=== PATIENT | female | born 1995 | race Caucasian/White ===

== ENCOUNTER 2024-09-21 13:55 | Emergency (ER) | payer OTHER, SELFPAY ==
[2024-09-21 14:02] VITALS: BP 132/73; PULSE 81; RESP 17; TEMP 36.6; O2SAT 98; BMI 29.2
--- NOTE | 2024-09-21 14:23 | US_ITS ---
WS: [id number] EARLY OBSTETRICAL ULTRASOUND (<14 WEEKS). HISTORY: vaginal bleeding, early COMPARISON: None available. Transvaginal imaging is performed. Thickened hyperechoic but homogeneous endometrium. Endometrium measures 11 mm. There is no intrauterine gestation. No pole or gestational sac. No implantation bleeding. There is no free fluid in the cul-de-sac. RIGHT ovary measures 4.1 x 1.7 x 3.6 cm. LEFT ovary measures 2.5 x 1.7 x 2.5 cm. No additional adnexal masses. US/US OB <=14 wk fetus w transvag IMPRESSION: 1. No intrauterine gestation identified. This may be due to a very early intra uterine gestation versus spontaneous versus ectopic . Correla te with beta hCG levels. 2. No ascites.
--- NOTE | 2024-09-21 14:56 | ED_ITS ---
HPI - Abdominal Pain 2 General: Chief Complaint: Abdominal Pain Stated Complaint: spotting / cramping / (5 weeks) Time Seen by Provider: 09/21/24 14:48 History of Present Illness: 29-year-old female presents emergency ro om with concern for miscarriage. She thinks she is approximately 5 weeks . She started having some low back pain and abdominal cramping today. She also had some vaginal bleeding. She has never had a miscarriage before. No fevers. No dysuria. Related Data Home Medications ?Medication ?Instructions ?Recorded ?Confirmed ibuprofen 200 mg tablet 800 mg PO Q6H PRN Fever Or P ain 09/21/24 09/21/24 vits no.118-iron asparto 1 cap PO DAILY 09/2109/21/24 30 mg-folate 1 mg-dha 300 mg capsule Previous Rx's ?Medication ?Instructions ?Recorded cephalexin 500 mg tablet 500 mg PO TID 7 days #21 tab s 09/21/24 diclofenac sodium 50 mg 50 mg PO BID PRN pain #14 ta bs 09/21/24 tablet,delayed release Allergies Allergy/AdvReac Type Severity Reaction Status Date / Time acetaminophen (From Allergy ALGY-Hives Verified 09/21/24 14:05 Darvocet-N) propoxyphene (From Allergy ALGY-Hives Verified 09/21/24 14:05 Darvocet-N) Review of Systems 2 Narrative: Constitutional symptoms: Negative except as documented in HPI. Skin symptoms: Negative except as documented in HPI. Eye symptoms: Negative except as documented in HPI. ENMT symptoms: Negative except as documented in HPI. Respiratory symptoms: Negative except as documented in HPI. Cardiovascular symptoms: Negative except as documented in HPI. Gastrointestinal symptoms: Negative except as documented in HPI. Genitourinary symptoms: Negative except as documented in HPI. Musculoskeletal symptoms: Negative except as documented in HPI. Neurologic symptoms: Negative except as documented in HPI. Psychiatric symptoms: Negative except as documented in HPI. Endocrine symptoms: Negative except as documented in HPI. Physical Exam 2 Narrative: EXAM NARRATIVE: General: Alert, no acute distress. Skin: Warm, dry. Head: Normocephalic, atraumatic. Neck: Supple, trachea midline. Eye: Extraocular movements are intact. Ears, nose, mouth and throat: mucosa moist. Cardiovascular: Regular, Normal peripheral perfusion. Respiratory: Lungs are clear to auscultation, respirations are non-labored, breath sounds are equal, Symmetrical chest wall expansion. Gastrointestinal: Soft, Nontender, Non distended Musculoskeletal: Normal ROM, no deformity. Neurological: Alert and oriented, No focal neurological deficit observed. Psychiatric: Cooperative, appropriate mood & affect. Course 2 Vital Signs: Vital signs: Vital Signs Temperature 97.9 F 09/21/24 14:02 Pulse Rate 81 09/21/24 14:02 Respiratory Rate 17 09/21/24 14:02 Blood Pressure 132/73 09/21/24 14:02 Pulse Oximetry 98 09/21/24 14:02 Oxygen Delivery Me thod Room Air 09/21/24 14:02 MDM - Abdominal Pain Medical Decision Making Medical decision making: Differential diagnosis including but not limited to and based on the above HPI, review of systems and physical exam: for patient in early with vaginal bleeding and abdominal pain: Spontaneous , threatened . Urinary tract infection. ectopic . Orders placed to evaluate differential diagnosis based on the above differential, HPI and physical exam Lab Review: Laboratory results were reviewed and interpreted by myself the emergency room physician. No leukocytosis. No anemia. No renal failure. hCG is near negative at 7. She does have 11-20 whites in her urine some going to place her on some antibiotics for a few days just in case she has UTI given that she has been having some low back pain. Patient is Rh+ so does not require RhoGAM. Ultrasound of the pelvis OB protocol: No intrauterine gestational findings. Either very early or spontaneous versus ectopic. This was reviewed and interpreted by myself the emergency room physician. I also reviewed the radiology report. I reviewed the patient's medical record. Reexamination: Patient has remained stable. No increased work of breathing. No altered mental status. She has no localizing abdominal pain to suggest ectopic . She has an appointment with her OB doctor in a few days. She will repeat lab at that time. Assessment and plan: Likely miscarriage Possible UTI - Discharged home - Discussed plan with patient. Answered any questions. - Evaluation and treatment of this problem were appropriate in the emergency setting. Lab Data 09/21/24 14:57 09/21/24 14:57 Labs/Radiology: Radiology Impressions Obstetrics Ultrasound 09/21/24 14:23 IMPRESSION: 1. No intrauterine gestation identified. This may be due to a very early intrauterine gestation versus spontaneous versus ectopic . Correlate with beta hCG levels. 2. No ascites. Laboratory Results WBC 10.14 10^3/uL (3.29-11.43) 09/21/24 14:57 RBC 4.64 10^6/uL (3.85-5.65) 09/21/24 14:57 Hgb 13.40 g/dL (11.27-16.99) 09/21/24 14:57 Hct 41.0 % (36-47) 09/21/24 14:57 MCV 88.4 fl (85-98) 09/21/24 14:57 MCH 28.9 pg (27-33) 09/21/24 14:57 MCHC 32.7 g/dL (30-55) 09/21/24 14:57 RDW 12.4 % (12.1-15.1) 09/21/24 14:57 Plt Count 278 10^3/cmm (157-399) 09/21/24 14:57 MPV 11.3 fL (7.4-10.4) H 09/21/24 14:57 Neut % (Auto) 71.7 % 09/21/24 14:57 Lymph % (Auto) 19.5 % 09/21/24 14:57 [place] % (Auto) 6.9 % 09/21/24 14:57 Eos % (Auto) 1.4 % 09/21/24 14:57 Baso % (Auto) 0.3 % 09/21/24 14:57 Neut # (Auto) 7.27 10^3/uL (1.8-7.7) 09/21/24 14:57 Lymph # (Auto) 2.0 10^3/uL (0.8-4.8) 09/21/24 14:57 [place] # (Auto) 0.7 10^3/uL (0.2-0.9) 09/21/24 14:57 Eos # (Auto) 0.1 10^3/uL (0.0-0.8) 09/21/24 14:57 Baso # (Auto) 0.0 10^3/uL (0.0-0.1) 09/21/24 14:57 Nucleated RBC % (auto) 0 % 09/21/24 14:57 Nucleated RBCs # 0.0 /100WBC 09/21/24 14:57 Sodium 141 mmol/L (136-145) 09/21/24 14:57 Potassium 3.6 mmol/L (3.5-5.1) 09/21/24 14:57 Chloride 105 mmol/L (98-107) 09/21/24 14:57 Carbon Dioxide 25 mmol/L (22-29) 09/21/24 14:57 Anion Gap 14.6 (5-19) 09/21/24 14:57 BUN 8 mg/dL (6-20) 09/21/24 14:57 Creatinine 0.6 mg/dL (0.5-0.9) 09/21/24 14:57 GFR Calculation 117.4 mL/min (90-130) 09/21/24 14:57 Glucose 92 mg/dL (65-115) 09/21/24 14:57 Calculated Osmolality 290 mOsm/kg (285-295) 09/21/24 14:57 Calcium 9.0 mg/dL (8.5-10.5) 09/21/24 14:57 Total Bilirubin 0.4 mg/dL (0.15-1.2) 09/21/24 14:57 AST 13 U/L (0-32) 09/21/24 14:57 ALT 13 U/L (0-33) 09/21/24 14:57 Alkaline Phosphatase 67 U/L (35-105) 09/21/24 14:57 Total Protein 7.4 g/dL (6.6-8.7) 09/21/24 14:57 Albumin 4.6 g/dL (3.5-5.2) 09/21/24 14:57 Globulin 2.8 g/dL (1.3-4.6) 09/21/24 14:57 Ser , Semi-Qnt 7.43 mIU/mL 09/21/24 14:57 Urine Color Red (Yellow) A 09/21/24 14:45 Urine Appearance Cloudy (CLEAR) A 09/21/24 14:45 Urine pH 7.0 (5-7) 09/21/24 14:45 Ur Specific [place] 1.006 (1.005-1.030) 09/21/24 14:45 Urine Protein 1+ (Negative) A 09/21/24 14:45 Urine Glucose (UA) Negative (Normal) 09/21/24 14:45 Urine Ketones Negative (Negative) 09/21/24 14:45 Urine Blood 3+ (Negative) A 09/21/24 14:45 Urine Nitrate Negative (Negative) 09/21/24 14:45 Urine Bilirubin Negative (Negative) 09/21/24 14:45 Urine Urobilinogen 0.2 mg/dL (Negative) 09/21/24 14:45 Ur Leukocyte Esterase Trace (Negative) A 09/21/24 14:45 Urine RBC 51-100 /hpf (0-2) H 09/21/24 14:45 Urine WBC 11-20 /hpf (0-5) H 09/21/24 14:45 Ur Squamous Epith Cells 0-5 /hpf (0-5) 09/21/24 14:45 Amorphous Sediment Not Reportable 09/21/24 14:45 Urine Bacteria None seen /hpf (NONE) 09/21/24 14:45 Hyaline Casts 0-4 /lpf H 09/21/24 14:45 Blood Type O Positive 09/21/24 14:57 Rho(D) Type Rh positive 09/21/24 14:57 All radiology interpretation(s) finalized by discharge Discharge Plan Discharge Patient Disposition: Home Clinical Impression: Miscarriage Condition: Stable Prescriptions: New cephalexin 500 mg tablet 500 mg PO TID 7 Days Qty: 21 0RF diclofenac sodium 50 mg tablet,delayed release (DR/EC) 50 mg PO BID PRN (Reason: pain) Qty: 14 0RF No Action ibuprofen [Excedrin IB] 200 mg Tablet 800 mg PO Q6H PRN (Reason: Fever Or Pain) [id number] 6-dha 30-1-300 mg Capsule 1 cap PO DAILY Discharge Orders: Discharge ED (Routine); Ordered 09/21/24 Ordered By: Radha Mcclure Referrals: Tatianna Melendrez MD [Primary Care Provider] - Patient Instructions: Opioid Safety, Pain Management Activity Restrictions/Additional Instructions: Please follow with your PCP for repeat beta-hCG in 2 to 3 days. If you develop any worsening pain or fevers please return to the emergency room or seek medical attention. 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 Thank you for choosing [facility] for your healthcare needs today. You have been screened and evaluated and felt safe for discharge. Health conditions do change or evolve sometimes and as such it is important that you follow up with your Primary Doctor to be re checked, 3-5 days is a general good time frame for follow up. You are always welcome to return to the ED for re assessment if your symptoms are worsening or you have new concerns Print Language: Turkmen Coding Level of Care Code ED Nursing Technician for Anny Cyr
[2024-09-21 15:06] LABS: Basophils % 0.3 %; Eosinophils # 0.1 10^3/uL (0.0-0.8); Eosinophils % 1.4 %; Lymphocytes % 19.5 %; Mean Corpuscular HGB Conc 32.7 g/dL (30-55); Mean Corpuscular Hemoglobin 28.9 pg (27-33); Mean Corpuscular Volume 88.4 fl (85-98); Mean Platelet Volume 11.3 fL (7.4-10.4); Monocytes # 0.7 10^3/uL (0.2-0.9); Monocytes % 6.9 %; Neutrophils # 7.27 10^3/uL (1.8-7.7); Neutrophils % 71.7 %; Nucleated Red Blood Cells % 0 %; Platelet Count 278 10^3/cmm (157-399); Red Blood Count 4.64 10^6/uL (3.85-5.65); Red Cell Distribution Width 12.4 % (12.1-15.1); White Blood Count 10.14 10^3/uL (3.29-11.43)
[2024-09-21 15:29] LABS: HCG Quantitative 7.43 mIU/mL
[2024-09-21 15:47] LABS: Bilirubin Urine Negative (Negative); Blood Urine 3+ (Negative); Glucose Urine UA Negative (Normal); Ketones Urine Negative (Negative); Leukocyte Esterase Urine Trace (Negative); Nitrate Urine Negative (Negative); Protein Urine 1+ (Negative); Specific Gravity, Urine 1.006 (1.005-1.030); Urine Appearance Cloudy (CLEAR); Urobilinogen Urine 0.2 mg/dL (Negative)
[2024-09-21 15:49] LABS: Alanine Aminotransferase 13 U/L (0-33); Albumin Level 4.6 g/dL (3.5-5.2); Alkaline Phosphatase 67 U/L (35-105); Anion Gap 14.6 (5-19); Aspartate Amino Transferase 13 U/L (0-32); Blood Urea Nitrogen 8 mg/dL (6-20); Carbon Dioxide 25 mmol/L (22-29); Chloride 105 mmol/L (98-107); Creatinine Clr Calc Pharmacy 132.8419; Globulin 2.8 g/dL (1.3-4.6); Glomerular Filtration Rate 117.4 mL/min (90-130); Glucose 92 mg/dL (65-115); Osmolality Calculated 290 mOsm/kg (285-295); Potassium 3.6 mmol/L (3.5-5.1); Sodium 141 mmol/L (136-145); Total Bilirubin 0.4 mg/dL (0.15-1.2); Total Protein 7.4 g/dL (6.6-8.7)
[2024-09-21 15:53] LABS: Bacteria Urine None Seen /hpf; Hyaline Casts Urine 0-4 /lpf; RBC Urine 51-100 /hpf (0-2); Squamous Epithelial Cell Urine 0-5 /hpf (0-5)
[2024-09-21 15:56] LABS: Add Urine Culture? Yes; Urine Color Red (Yellow)
== END 2024-09-21 16:38 | disposition home or self-care (01) ==
PROVIDERS: Emergency Provider Emergency Medicine; PCP Family Medicine
DX: O03.9 Complete or unspecified spontaneous abortion without complication (principal)
CPT/HCPCS: 36415; 76801; 76817; 80053; 81001; 84702; 85025; 86900; 87086; 99284

== ENCOUNTER 2025-05-23 14:49 | Outpatient (CLI) | payer OTHER, SELFPAY ==
[2025-05-23 14:49] VITALS: BMI 34.5
[2025-05-23 15:03] VITALS: BP 115/68; PULSE 109
[2025-05-23 15:18] VITALS: BP 113/67; PULSE 92
[2025-05-23 15:33] VITALS: BP 113/67; PULSE 92; RESP 17; O2SAT 98
== END 2025-05-23 15:33 | disposition home or self-care (01) ==
LOC: OPOB 14:52 → OBGYN 14:53
PROVIDERS: PCP Family Medicine; Visit Provider Family Medicine
DX: O36.8190 Decreased fetal movements, unspecified trimester, not applicable or unspecified (principal); Z3A.00 Weeks of gestation of pregnancy not specified
CPT/HCPCS: 59025; 99211